=== PATIENT | male | born 1995 ===

== ENCOUNTER 2021-06-24 14:27 | Emergency (ER) | payer OTHER ==
[2021-06-24 15:54] VITALS: BP 128/79; PULSE 77; TEMP 98.2; BMI 29.0
== END 2021-06-24 16:39 | disposition home or self-care (01) ==
LOC: FER 14:27
DX: S62.91XA Unspecified fracture of right hand, initial encounter for closed fracture (principal)
CPT/HCPCS: 73110-TC-RT-FY; 73130-TC-RT-FY; 99284-25